=== PATIENT | male | born 1980 | race Caucasian/White ===

== ENCOUNTER 2021-12-28 17:55 | Emergency (ER) | payer BC ==
[2021-12-28] MEDS ORDERED: Magnesium Sulfate/Water 50 ML ONE ×2 (19:54→19:56)
[2021-12-28] MEDS ORDERED: Potassium Chloride 20 MEQ Tab.ER ONE (19:55)
[2021-12-28] MEDS ORDERED: Magnesium Sulfate/Water 2 GM in Premix Bag 1 BAG IV ONE ×2 (20:28→20:57)
[2021-12-28] MEDS ORDERED: ALPRAZolam 0.25 MG Tab PO ONE (20:44)
[2021-12-28] MEDS ORDERED: Metoprolol Tartrate 25 MG Tab PO ONE (20:44)
[2021-12-28] MEDS ORDERED: Sodium Chloride 0.9% 1,000 ML IV ONE (20:56)
[2021-12-28] MEDS ORDERED: Potassium Chloride 20 MEQ Tab.ER PO ONE ×2 (20:57→22:00)
[2021-12-28] MEDS ORDERED: Metoprolol Tartrate 25 MG Tab ONE (21:08)
[2021-12-28] MEDS ORDERED: ALPRAZolam 0.25 MG Tab ONE (21:13)
[2021-12-28 22:50] LABS: ANION GAP 16.8 meq/L (7-15)
[2021-12-28 22:51] LABS: BARBITURATE SCREEN,URINE NEGATIVE (NEGATIVE); BENZODIAZEPINES SCREEN,URINE NEGATIVE (NEGATIVE); EDDP,URINE SCREEN NEGATIVE (NEGATIVE)
[2021-12-28 22:52] LABS: BUPRENORPHINE SCREEN,URINE NEGATIVE (NEGATIVE); TCA SCREEN,URINE NEGATIVE (NEGATIVE); THC SCREEN,URINE 50 NG/ML NEGATIVE (NEGATIVE)
[2021-12-28 23:14] LABS: HEMOGLOBIN A1C 5.4 % (4.3-5.7)
== END 2021-12-28 22:15 | disposition home or self-care (01) ==
LOC: LL.ED 17:55
DX: E83.42 Hypomagnesemia (principal); E87.6 Hypokalemia; R73.9 Hyperglycemia, unspecified; R74.8 Abnormal levels of other serum enzymes; I10 Essential (primary) hypertension
CPT/HCPCS: 36415; 71045; 80053; 80305-QW; 80307; 81003; 83036; 83605; 83735; 83880; 84443; 84484; 85025; 85379; 93005; 93010; 96361; 96365; 96366; 99284; 99285-25; A9270-GY; J3475; J7030